=== PATIENT | male | born 1970 | race Hispanic/Latino ===

== ENCOUNTER → 2024-09-23 | Outpatient (CLI) | payer BC ==
--- NOTE | 2024-09-23 16:25 | HMCIMG ---
ABD 1VW HISTORY: Constipation COMPARISON: None FINDINGS: A frontal projection of the abdomen was obtained. Mild small bowel bowel dictation is seen. Fecal material is seen in the colon. Degenerative changes of the thoracolumbar spine are noted. IMPRESSION: 1. Mild small bowel dilatation is seen. Fecal material is seen in the colon suggestive of constipation.
== END | disposition home or self-care (01) ==
LOC: RAH 14:01
PROVIDERS: ATTEND Nurse Practitioner Family
DX: K59.00 Constipation, unspecified (principal); M47.815 Spondylosis without myelopathy or radiculopathy, thoracolumbar region
CPT/HCPCS: 74018